=== PATIENT | female | born 1970 | race Caucasian/White ===

== ENCOUNTER 2023-01-18 09:17 | Outpatient (REF) | payer OTHER, SELFPAY ==
[2023-01-18 19:13] LABS: Abs Immature Grans 0.01 10^3/uL (0.0-0.06); Absolute Basophil Count 0.02 10^3/uL (0.0-0.2); Absolute Eosinophil Count 0.08 10^3/uL (0.0-0.7); Absolute Lymphocyte Count 1.61 10^3/uL (1.2-3.4); Absolute Monocyte Count 0.61 10^3/uL (0.1-0.8); Absolute Neutrophil Count 2.72 10^3/uL (1.2-6.7); Basophils % 0.4; Eosinophils % 1.6; Immature Grans % 0.2; Lymphocytes % 31.9; MCH 30.1 pg (27.0-33.0); MCHC 32.6 % (32.0-36.0); MCV 92 fL (80-95); MPV 10.7 fL (8.0-11.0); Monocytes % 12.1; Neutrophils % 53.8; Platelet Count 340 10^3/uL (130-400); RBC 4.99 10^6/uL (3.93-5.22); RDW 12.8 % (11.7-14.6); RDW-SD 43.4 fL; WBC 5.05 10^3/uL (4.4-10.8)
[2023-01-18 19:33] LABS: Hemoglobin A1C 5.5 % (<5.7)
[2023-01-18 19:41] LABS: ALT 23 U/L (14-59); AST 21 U/L (15-37); Alkaline Phosphatase 52 U/L (46-116); Anion Gap 7.3 mmol/L (3-11); BUN 21 mg/dL (7-18); Bilirubin, Total 0.4 mg/dL (0.2-1.0); CO2 27.7 mmol/L (21.0-32.0); CREATININE 0.9 mg/dL (0.55-1.02); Calcium 9.4 mg/dL (8.5-10.1); Calculated LDL 118 mg/dL (<100); Chloride 106 mmol/L (98-107); Cholesterol 182 mg/dL (<200); Estimated GFR 77.88 (mL/min/1.73m2); Glucose 101 mg/dL (74-106); HDL Cholesterol 46 mg/dL (40-60); Sodium 141 mmol/L (136-145); TSH (W/Ref FT4) 2.64 uIU/mL (0.36-3.74); Total Protein 7.8 g/dL (6.4-8.2); Triglyceride 91 mg/dL (<150)
[2023-01-19 18:57] LABS: FSH 16.7 mIU/mL (See Note)
== END 2023-01-18 09:18 | disposition home or self-care (01) ==
LOC: NCHCN 09:17
PROVIDERS: PCP Internal Medicine; Visit Provider Physician Assistant
DX: Z00.00 Encounter for general adult medical examination without abnormal findings (principal); N95.1 Menopausal and female climacteric states; L40.9 Psoriasis, unspecified; L71.9 Rosacea, unspecified; Z83.3 Family history of diabetes mellitus; Z13.1 Encounter for screening for diabetes mellitus; Z13.29 Encounter for screening for other suspected endocrine disorder; Z13.220 Encounter for screening for lipoid disorders
CPT/HCPCS: 80053; 80061; 83001; 83036; 84443; 85025

== ENCOUNTER 2024-01-12 07:03 | Day surgery (SDC) | payer OTHER, SELFPAY ==
[2024-01-12 07:19] VITALS: BP 124/89; PULSE 74; RESP 16; TEMP 36.5; O2SAT 98
[2024-01-12] MEDS: Lactated Ringers 1,000 ML 80 ML IV (07:46)
--- NOTE | 2024-01-12 08:04 | W.ANESPRE ---
General Info Date of Service Date Performed: 01/12/24 Height: 5 ft 6 in Weight: 100.1 kg Body Mass Index (BMI): 35.6 Surgical Procedure: Operation Date: 01/12/24 08:20 Proposed Procedure Side Surgeon p Stephane Kahn MD Meds Allergies and Home Medications Allergies Allergy/AdvReac Type Severity Reaction Status Date / Time minocycline Allergy Intermediate Itching Verified 01/12/24 07:12 Home Medication Medication Instructions Recorded metronidazole 1 % topical gel 1 applic topical DAILY 10/07/23 triamcinolone acetonide 0.1 % 1 applic topical DAILY 10/07/23 topical cream bisacodyl 5 mg tablet,delayed 5 mg PO ONCE #4 tabs 12/09/23 release (Dulcolax (bisacodyl)) polyethylene glycol 3350 17 17 g PO ONCE #238 grams 12/09/23 gram/dose oral powder Current Visit Medications: Current Medications Generic Name Dose Route Start Last Admin Trade Name Freq PRN Reason Stop Dose Admin Ringer's Solution 1,000 mls @ 80 mls/hr 01/12/24 06:00 01/12/24 07:46 IV 02/10/24 23:59 80 mls/hr INFUSION GUSTAVO Administration IV Miscellaneous Supplies 1 each 01/12/24 06:00 Iv Access IV 02/10/24 23:59 DIRECTED GUSTAVO Sodium Chloride 0 ml 01/12/24 06:00 Normal Saline Flush 10 Ml Syr IV 02/10/24 23:59 PRN PRN Sodium Chloride 0 ml 01/12/24 06:00 Normal Saline 10 Ml Vial IJ 02/10/24 23:59 DIRECTED PRN Sterile Water 0 ml 01/12/24 06:00 Water,Injection,Sterile 10 Ml Vial IJ 02/10/24 23:59 DIRECTED PRN PFSH Active Problems Active Problems: Problem Status Onset Code Psoriasis L40.9 Rosacea L71.9 Varicose vein of leg I83.90 Obesity E66.9 Drug hypersensitivity Z88.9 Family history of colon cancer Z80.0 Family history of malignant melanoma Z80.8 Menopausal symptoms N95.1 Skin tag L91.8 Surgical History Surgical History Hx of varicose veins Radiofrequency ablation Tobacco Smoking/Tobacco Use Status: Never Alcohol Alcohol Intake: current Alcohol intake frequency: a few times a week Substance Use Substance use: Occasionally Substance use type: marijuana Vital Signs and Lab Results Vital Signs Most Recent Vital Signs in EMR: Most Recent Vital Signs Temp Pulse Resp BP Pulse Ox 36.5 C 74 16 124/89 98 01/12/24 07:19 01/12/24 07:19 01/12/24 07:19 01/12/24 07:19 01/12/24 07:19 Point of Care Results Point of Care Results: POC- Test(urine) Negative 01/12/24 07:27 Lab Results Blood Type / Crossmatch: No Data to Display Complete Blood Count: No Data to Display Complete Metabolic Panel: No Data to Display Liver Function Panel: No Data to Display Coagulation Panel: No Data to Display Cardiac Panel: No Data to Display Arterial Blood Gas: No Data to Display Venous Blood Gas: No Data to Display Pancreas Panel: No Data to Display Thyroid Panel: No Data to Display Infectious Disease: No Data to Display Blood Cultures: No Data to Display Toxicology Panel: No Data to Display Panel: No Data to Display Anesthesia Assessment and Plan Anesthesia History Personal History: No History of Anesthesia Complications Family History: No Family History of Anesthesia Complications Exercise Tolerance Exercise Tolerance: Metabolic Equivalents>4 Pertinent Negatives Pertinent Negatives: No Symptoms of GERD Cardiac & Pulmonary Exam Cardiac Exam: Normal S1/S2 Heart Sounds Pulmonary Exam: Clear Bilateral Breath Sounds Implantable Cardiac Device Does patient have a Pacemaker or an ICD?: No Airway Exam Known Difficult Airway: No Mallampati Class: 2 Mouth Opening: Normal (> 3cm) Thyromental Distance: Greater than 3 cm Neck Range of Motion: Full ROM Neck Circumference: Normal Teeth Condition: Normal Dentition ASA Classification ASA Score: ASA 2 Emergency Case?: No NPO Status NPO Status: NPO Clears >2 hours, Solids >8 hours Status Status: Negative HCG Anesthesia Plan Resuscitation Status: Full Code Anesthesia Technique: General Anesthesia Airway Planned: Natural Airway Monitors Used: Standard Monitors
[2024-01-12 08:05] VITALS: BMI 35.6
--- NOTE | 2024-01-12 08:05 | W.SURGCON ---
Date of service: 01/12/24 Time of Service: 08:07 Assessment and Plan Assessment and plan (1) Colon cancer screening: Status: Acute Assessment and plan: 53-year-old woman with increased risk because of 2 second-degree relatives with colon cancer. This is a surveillance colonoscopy for her. She has no symptoms. Overall plan: Colonoscopy History of Present Illness Narrative: 53-year-old woman is here for colon cancer screening. She has a family history and a grandfather as well as an aunt which is 2 second-degree relatives. She has had a prior colonoscopy that was reportedly normal except for hemorrhoids. She currently has no symptoms. PFSH All Active Problems (Updated 01/12/24 @ 08:08 by Dar Kahn MD) Colon cancer screening (Acute) Psoriasis (Chronic) Rosacea (Acute) Varicose vein of leg (Acute) Obesity (Chronic) Drug hypersensitivity (Acute) Family history of colon cancer (Acute) Family history of malignant melanoma (Acute) Menopausal symptoms (Acute) Skin tag (Acute) Surgical History Hx of varicose veins Radiofrequency ablation Family History (Updated 10/07/23 @ 11:19 by Liset Louise RN, RN) Maternal Grandfather , 60s of colon cancer Colon cancer Mother Diabetes Melanoma CIDP (chronic inflammatory demyelinating polyneuropathy) Father Rheumatoid arthritis Endocardial disease Social History (Updated 12/10/23 @ 09:25 by CINTIA Mcmillan) Smoking/Tobacco Use Status: Never Smoking risk assessment performed?: Yes Alcohol Intake: current Alcohol Intake frequency: a few times a week Drug use: Occasionally Substance use type: marijuana Housing: house Do you feel safe at home: Yes Do you feel safe in your relationship?: Yes Exam Narrative Exam Narrative: General: Nontoxic, comfortable and interactive Neuro: Alert and oriented x 3 Psych: Good mood and affect, good insight and understanding into her condition Chest: Nonlabored breathing and no wheezing Heart: Regular Results Last Vital Signs Temp 97.7 F 01/12/24 07:19 Pulse 74 01/12/24 07:19 Resp 16 01/12/24 07:19 BP 124/89 01/12/24 07:19 Pulse Ox 98 01/12/24 07:19
--- NOTE | 2024-01-12 08:09 | W.COLOREPORT ---
Date of service: 01/12/24 Time of Service: 08:09 Colonoscopy Report Procedure Description: PROCEDURES PERFORMED: 1. Colonoscopy with hot snare polypectomy x 2 PREOPERATIVE DIAGNOSIS: Surveillance colonoscopy POSTOPERATIVE DIAGNOSIS: Sigmoid diverticulosis, colon polyps SURGEON: Saad Kahn MD INDICATION FOR PROCEDURE: the patient is a 53-year-old woman with a family history of colon cancer in an aunt and grandfather. She has no symptoms. Prior colonoscopies have been normal. FINDINGS: Normal terminal ileum. In the ascending colon a 3-5 mm sessile polyp was removed with hot snare technique. In the proximal sigmoid/distal descending colon a pedunculated 7-10 mm polyp was removed with hot snare technique. Scattered diverticular changes are present in the sigmoid colon only. No active diverticulitis or stricture or fibrosis was seen. No significant hemorrhoid disease. SURVEILLANCE interval/FOLLOW-UP: 3 years because of the family history and the findings today SPECIMENS: Yes EBL: Minimal COMPLICATIONS: None QUALITY of prep: Excellent Procedure in detail: The patient gave written consent and was in agreement with the indications, the potential risks as well as the benefits of the procedure. They were taken to the endoscopy suite and laid in the left lateral decubitus position. A timeout was performed and anesthesia was administered which was tolerated well. I started the procedure. Digital rectal and visual examination was performed and grossly within normal limits. A well-lubricated flexible colonoscope was then introduced and passed without any notable difficulty all the way to the cecum identified by the ileocecal valve and the appendiceal orifice. Terminal ileum was intubated and looked normal. The scope was then slowly withdrawn with the above-noted findings. The patient tolerated the procedure well and was taken to the PACU in hemodynamically stable condition.
--- NOTE | 2024-01-12 08:09 | W.PM.DSUDISC ---
Date of service: 01/12/24 Time of Service: 08:09 Discharge Plan Disposition Patient Disposition: Home Condition: Good Discharge Details Attending Provider: Dar Kahn Primary Care Provider: Marixa Rodriguez Home Meds and New Rx's Prescriptions: No Action bisacodyl [Dulcolax (bisacodyl)] 5 mg tablet,delayed release (DR/EC) 5 mg PO ONCE Qty: 4 0RF Rx Instructions: Take per colonoscopy instructions provided by ordering providers office polyethylene glycol 3350 17 gram/dose powder 17 g PO ONCE Qty: 238 0RF Rx Instructions: Take per colonoscopy instructions provided by ordering providers office metronidazole 1 % gel 1 applic topical DAILY triamcinolone acetonide 0.1 % cream 1 applic topical DAILY Discharge Instructions Additional Instructions: FINDINGS: Some polyps were found and removed today. This is why we do the colonoscopies. These are what grow into colon cancer and it is important to find them and remove them. Because of finding them today and considering her family history you should do another colonoscopy in 3 years. Mild diverticular disease was seen today. This is extremely common, benign and nothing needs to be done about it. Stand Alone Forms: Colonoscopy Post Instructions Activity:: Activity as Tolerated Diet:: As Tolerated DS: Diagnosis Discharge Diagnosis (1) Colon cancer screening: Status: Acute
--- NOTE | 2024-01-12 08:33 | BOWEL_PTH ---
PATIENT: Rashmi Moss LOC: [facility] U#:[id number] AGE/SX: 53/F ROOM: RE01/12/[address]: Dar Kahn : 1970 BED: DIS: 01/12/2024 SPEC #: [id number] RECD: 01/12/24 12:45 STATUS: ISACC RETessa #: [id number] ARABELLA: 01/12/24 08:[address]: Dar Kahn DEPT: Surgical Specimen RECD BY: Machelle Deluca ENTERED: 01/12/24 12:46 SP TYPE: Bowel OTHR DR: Marixa Rodriguez Tissues: 1 - BIOPSY BOWEL 2 - BIOPSY BOWEL Procedures: GROSS AND MICRO LEVEL 4 Comments: [id number]
[2024-01-12 08:44] VITALS: BP 110/56; PULSE 76; RESP 16; TEMP 36.6; O2SAT 97
--- NOTE | 2024-01-12 08:58 | W.ANESPOSTOP ---
Postoperative Evaluation Date, Time and Location Date Performed: 01/12/24 Time Performed: 08:58 Patient Location: Day Surgery Unit Vital Signs Most Recent Imported Vital Signs: Most Recent Vital Signs Temp Pulse Resp BP Pulse Ox 36.6 C 76 16 110/56 L 97 01/12/24 08:44 01/12/24 08:44 01/12/24 08:44 01/12/24 08:44 01/12/24 08:44 Pain Score Most Recent Pain Score: Most Recent Pain Score Pain Level 0 01/12/24 08:44 Assessment Mental Status: Awake (Alert & Oriented to Patient Baseline) Airway and Respiratory Function: Patent airway with normal (patient baseline) respiratory exam Cardiovascular Function: Hemodynamically Stable Hydration Status: Adequately Hydrated Nausea & Vomiting: No Nausea or Vomiting Pain: Pt. Denies Any Pain Peripheral Nerve Block: Patient did not receive a nerve block
[2024-01-12 09:15] VITALS: BP 124/82; PULSE 60; RESP 16; TEMP 36.5; O2SAT 99
== END 2024-01-12 07:04 | disposition home or self-care (01) ==
PROVIDERS: PCP Physician Assistant; Visit Provider Student in an Organized Health Care Education/Training Program
PROC: 0DJD8ZZ Inspection of Lower Intestinal Tract, Via Natural or Artificial Opening Endoscopic (ICD-10-PCS; CPT 45378; principal; 2024-01-12 08:15)
DX: Z12.11 Encounter for screening for malignant neoplasm of colon (principal); D12.2 Benign neoplasm of ascending colon; K57.30 Diverticulosis of large intestine without perforation or abscess without bleeding; Z80.0 Family history of malignant neoplasm of digestive organs; D37.4 Neoplasm of uncertain behavior of colon
CPT/HCPCS: 45385; 00123; 81025; 88305; J2001; J2704

== ENCOUNTER 2025-08-10 19:47 | Outpatient (REF) | payer OTHER, SELFPAY ==
[2025-08-10 20:11] LABS: ALT 22 U/L (14-59); AST 21 U/L (15-37); Albumin 3.8 g/dL (3.4-5.0); Alkaline Phosphatase 58 U/L (46-116); Anion Gap 6.8 mmol/L (3-11); BUN 18 mg/dL (7-18); Bilirubin, Total 0.4 mg/dL (0.2-1.0); CO2 30.2 mmol/L (21.0-32.0); Calcium 9.3 mg/dL (8.5-10.1); Calculated LDL 128 mg/dL (<100); Chloride 107 mmol/L (98-107); Cholesterol 191 mg/dL (<200); Estimated GFR 88.05 (mL/min/1.73m2); Glucose 102 mg/dL (74-106); HDL Cholesterol 50 mg/dL (>or=50); Potassium 5.3 mmol/L (3.5-5.1); Sodium 144 mmol/L (136-145); Total Protein 7.6 g/dL (6.4-8.2); Triglyceride 67 mg/dL (<150)
== END 2025-08-10 19:48 | disposition home or self-care (01) ==
LOC: NCHCN 19:47
PROVIDERS: PCP Physician Assistant; Visit Provider Physician Assistant
DX: E78.5 Hyperlipidemia, unspecified (principal)
CPT/HCPCS: 80053; 80061